=== PATIENT | female | born 1985 | race Caucasian/White ===

== ENCOUNTER 2016-11-29 19:28 | Emergency (ER) | payer MEDICAID ==
[~2016-11-29] VITALS: Ht 157.5 cm; Wt 79.0 kg
[2016-11-29 19:32] VITALS: Ht 157.5 cm; Wt 79.0 kg
[2016-11-29] MEDS ORDERED: SOD CHLORIDE 0.9% 1,000 ML IV ONE (20:30)
[2016-11-29] MEDS ORDERED: ACETAMINOPHEN 325 MG TAB PO ONE (20:30)
[2016-11-29 21:22] LABS: ADD SCAN DIFF NO
--- NOTE | 2016-11-29 21:25 | RADRPT ---
PROCEDURE: OB Ultrasound. CLINICAL INDICATION: Positive test. Vaginal bleeding. TECHNIQUE: Ultrasound of the pelvis was performed with transabdominal and transvaginal sonography in the axial and sagittal planes. COMPARISON: No prior study is available for comparison. FINDINGS: There is a single intrauterine gestational sac. pole is not visualized. Yolk sac is present. Mean sac diameter is 1.15 cm. Menstrual age by ultrasound dates is 5 weeks 5 days. This indicates an expected date of delivery of 07/27/2017. The right ovary appears normal measuring 2.9 x 2.0 x 2.3 cm. The left ovary appears normal measuring 2.1 x 1.7 x 2.1 cm. Color Doppler and pulsed Doppler sonography demonstrate normal flow to the ovaries. There is no other pelvic mass or free fluid. IMPRESSION: 1. Single early intrauterine gestational sac. It is too early to visualize pole. Follow-up ultrasound in 10 days is advised. RPTAT: QQ .Balta Chandra MD, Date Time Electronically viewed and signed by .Balta Chandra MD, on 11/29/2016 21:24 .R/
[2016-11-29 21:27] LABS: BASOPHILS % 0.4 % (0.0-2.0); EOSINOPHILS # 0.2 10^3/ul (0.0-0.5); EOSINOPHILS % 1.7 % (0.0-7.0); HEMATOCRIT 40.2 % (37.0-47.0); HEMOGLOBIN 13.4 g/dl (12.0-16.0); LYMPHOCYTES # 2.4 10^3/ul (0.8-2.9); LYMPHOCYTES % 21.4 % (15.0-51.0); MEAN CORPUSCULAR HEMOGLOBIN 32.2 pg (29.0-33.0); MEAN CORPUSCULAR HGB CONC 33.3 g/dl (32.0-37.0); MEAN CORPUSCULAR VOLUME 96.6 fl (82.0-101.0); MONOCYTE # 0.8 10^3/ul (0.3-0.9); MONOCYTES % 6.7 % (0.0-11.0); NEUTROPHIL # 7.7 10^3/ul (1.6-7.5); NEUTROPHILS % 69.3 % (39.0-77.0); PLATELET COUNT 251 10^3/UL (140-415); RED BLOOD COUNT 4.16 10^6/ul (4.20-5.40); RED CELL DISTRIBUTION WIDTH 12.4 % (11.5-14.5); WHITE BLOOD COUNT 11.1 10^3/ul (4.8-10.8)
[2016-11-29 21:36] LABS: ADD UMIC YES; URINE BILIRUBIN (Dip) NEGATIVE (NEGATIVE); URINE BLOOD (Dip) 3+ (NEGATIVE); URINE COLOR LT. YELLOW (YELLOW); URINE GLUCOSE (Dip) NEGATIVE (NEGATIVE); URINE KETONES (Dip) NEGATIVE (NEGATIVE); URINE LEUKOCYTE ESTERASE (Dip) NEGATIVE (NEGATIVE); URINE NITRITE (Dip) NEGATIVE (NEGATIVE); URINE TOTAL PROTEIN (Dip) NEGATIVE (NEGATIVE); URINE UROBILINOGEN (Dip) 0.2 E.U./dL (0.1-1.0)
[2016-11-29 21:42] LABS: ALBUMIN 4.1 g/dl (3.3-4.9)
[2016-11-29 21:43] LABS: POTASSIUM 3.8 mmol/L (3.5-5.1)
[2016-11-29 21:45] LABS: ALBUMIN/GLOBULIN RATIO 1.13; BILIRUBIN,INDIRECT 0.3 mg/dl (0-1.1); BILIRUBIN,TOTAL 0.3 mg/dl (0.2-1.3); CALCIUM 9.4 mg/dl (8.4-10.2); CREATININE 0.74 mg/dl (0.44-1.00); TOTAL PROTEIN 7.7 g/dl (6.1-8.1)
--- NOTE | 2016-11-29 21:58 | ERD ---
ER Documentation Chief Complaint Date/Time DATE: 11/29/16 TIME: 21:53 Chief Complaint 5 wks , vag bleeding 1 hour ago HPI 30-year-old other otherwise healthy female presents the emergency department complaining of mild lower abdominal cramping and spotting. Patient states she is approximately 5 weeks . Patient denies any recent trauma, fever, nausea, vomiting, diarrhea. This is her first . Patient has not yet been to see [facility]. ROS All systems reviewed and are negative except as per history of present illness. Allergies Allergies: Coded Allergies: Penicillins (Verified Allergy, Unknown, 11/29/16) Sulfa (Sulfonamide Antibiotics) (Verified Allergy, Unknown, 11/29/16) PMhx/Soc Medical and Surgical Hx: pt denies Medical Hx, pt denies Surgical Hx Hx Alcohol Use: No Hx Substance Use: No Hx Tobacco Use: No Smoking Status: Never smoker Physical Exam Vitals Vital Signs Date Time Temp Pulse Resp B/P Pulse Ox O2 Delivery O2 Flow Rate FiO2 11/29/16 19:32 99.7 92 20 127/72 100 Physical Exam Const: Well-developed, well-nourished, no acute distress Head: Atraumatic Eyes: Normal Conjunctiva ENT: Normal External Ears, Nose and Mouth. Neck: Full range of motion..~ No meningismus. Resp: Clear to auscultation bilaterally Cardio: Regular rate and rhythm, no murmurs Abd: Soft, non tender, non distended. Normal bowel sounds Skin: No petechiae or rashes Back: No midline or flank tenderness Ext: No cyanosis, or edema Neur: Awake and alert Psych: Normal Mood and Affect Result Diagram: 11/29/16211411/29/162114 Results 24 hrs Laboratory Tests Test 11/29/16 21:00 11/29/16 21:15 Urine Bacteria RARE Urine Bilirubin NEGATIVE Urine Clarity SLIGHTLY CLOUDY Urine Color LT. YELLOW Urine Glucose NEGATIVE% Urine Hemoglobin 3+ Urine Ketones NEGATIVE Urine Leukocyte Esterase NEGATIVE Urine Microscopic RBC 5-10/HPF Urine Microscopic WBC 0-2/HPF Urine Nitrite NEGATIVE Urine Specific [place] 1.020 Urine Squamous Epithelial Cells FEW Urine Total Protein NEGATIVE Urine Urobilinogen 0.2 E.U./dL Urine pH 6.0 Alanine Aminotransferase (ALT/SGPT) 81IU/L Albumin 4.1g/dl Albumin/Globulin Ratio 1.13 Alkaline Phosphatase 102IU/L Anion Gap 17 Aspartate Amino Transf (AST/SGOT) 41IU/L Basophils # 0.010^3/ul Basophils % 0.4% Beta HCG, Quantitative 79885.0mIU/ml Blood Urea Nitrogen 14mg/dl Calcium Level 9.4mg/dl Carbon Dioxide Level 25mmol/L Chloride Level 101mmol/L Creatinine 0.74mg/dl Direct Bilirubin 0.00mg/dl Eosinophils # 0.210^3/ul Eosinophils % 1.7% Globulin 3.60g/dl Glucose Level 93mg/dl Hematocrit 40.2% Hemoglobin 13.4g/dl Indirect Bilirubin 0.3mg/dl Lymphocytes # 2.410^3/ul Lymphocytes % 21.4% Mean Corpuscular Hemoglobin 32.2pg Mean Corpuscular Hemoglobin Concent 33.3g/dl Mean Corpuscular Volume 96.6fl Mean Platelet Volume 11.0fl Monocytes # 0.810^3/ul Monocytes % 6.7% Neutrophils # 7.710^3/ul Neutrophils % 69.3% Nucleated Red Blood Cells # 0.010^3/ul Nucleated Red Blood Cells % 0.0/100WBC Platelet Count 88049^3/UL Potassium Level 3.8mmol/L Red Blood Count 4.1610^6/ul Red Cell Distribution Width 12.4% Sodium Level 139mmol/L Total Bilirubin 0.3mg/dl Total Protein 7.7g/dl White Blood Count 11.110^3/ul Current Medications Medications (Trade) Dose Ordered Sig/Nicole Route PRN Reason Start Time Stop Time Status Last Admin Dose Admin Sodium Chloride (NS) 1,000 ml @ 1,000 mls/hr Q1H ONCE IV 11/29/16 20:30 11/29/16 21:29 DC 11/29/16 21:09 Acetaminophen (Tylenol Tab) 650 mg ONCE ONCE PO 11/29/16 20:30 11/29/16 20:31 DC 11/29/16 21:09 Procedures/MDM PROCEDURE: OB Ultrasound. CLINICAL INDICATION: Positive test. Vaginal bleeding. TECHNIQUE: Ultrasound of the pelvis was performed with transabdominal and transvaginal sonography in the axial and sagittal planes. COMPARISON: No prior study is available for comparison. FINDINGS: There is a single intrauterine gestational sac. pole is not visualized. Yolk sac is present. Mean sac diameter is 1.15 cm. Menstrual age by ultrasound dates is 5 weeks 5 days. This indicates an expected date of delivery of 07/27/2017. The right ovary appears normal measuring 2.9 x 2.0 x 2.3 cm. The left ovary appears normal measuring 2.1 x 1.7 x 2.1 cm. Color Doppler and pulsed Doppler sonography demonstrate normal flow to the ovaries. There is no other pelvic mass or free fluid. IMPRESSION: 1. Single early intrauterine gestational sac. It is too early to visualize pole. Follow-up ultrasound in 10 days is advised. RPTAT: QQ .Balta Chandra MD, MD Date Time Electronically viewed and signed by .Balta Chandra MD, MD on 11/29/2016 21:24 .R/ CC: DORA RUTH PA-C MDM Otherwise healthy 30-year-old female presents to the emergency department complaining of lower abdominal cramping and mild vaginal spotting. Patient is estimated to be around 5 weeks . Patient denies any urinary symptoms including dysuria, hematuria, or vaginal discharge. Patient is afebrile, normotensive, non-tachycardic and not hypoxic. OB ultrasound demonstrated a single early intrauterine gestational sac. Recommended follow-up ultrasound in 10 days Patient received bolus of fluids while in the emergency department. CBC showed no evidence of systemic infection or severe anemia. CMP showed no evidence of electrolyte abnormalities, severe acidosis, alkalosis , renal failure, or liver disease. UA showed no evidence of acute infection or hematuria. Blood type O-. RhoGAM ordered and administered to patient. At this time I have low suspicion for urinary tract infection, spontaneous , pelvic inflammatory disease, ovarian torsion, tubo-ovarian abscess, appendicitis, diverticulitis. Patient to follow-up with [facility] and repeat ultrasound within 10 days. Patient expressed understanding of and agreement with plan Based on patient's history of present illness and physical examination the decision was made to discharge. The patient was re-evaluated after ED treatment and stabilizing measures, and symptoms have improved. There is no evidence of life threatening injuries or illnesses at this time. On re-examination, patient resting in no distress, stable vital signs, reports feeling better and safe for discharge with outpatient follow up with PMD in 1-2 days. Patient given return precautions. Departure Diagnosis: Primary Impression: Vaginal bleeding Additional Impressions: Vaginal bleeding in patient at less than 20 weeks gestation Pelvic cramping DORA RUTH PA-C Nov 29, 2016 21:58
[2016-11-29 22:01] LABS: BACTERIA,URINE RARE; SQUAMOUS EPITHELIAL CELL,UR FEW
[2016-11-29] MEDS ORDERED: ONDA4TAB14 PO (23:39)
[2016-11-29] MEDS ORDERED: ACET-2047 PO (23:39)
[2016-11-30 00:33] VITALS: BP 122/70; PULSE 88; RESP 20; TEMP 98.8
== END 2016-11-30 00:35 | disposition home or self-care (01) ==
LOC: FTE 19:28
DX: O20.9 Hemorrhage in early pregnancy, unspecified (principal); R10.2 Pelvic and perineal pain; Z3A.01 Less than 8 weeks gestation of pregnancy
CPT/HCPCS: 76817; 80053; 81001; 81003; 84702; 85025; 86900; 86901; J2790; J7030; Z7502; Z7610

== ENCOUNTER 2017-03-22 22:42 | Outpatient (CLI) | payer MEDICAID ==
[~2017-03-22] VITALS: Ht 152.4 cm; Wt 82.3 kg
[~2017-03-22 22:42] MED LIST: ACET-2047 PO; ONDA4TAB14 PO
[2017-03-22 23:25] VITALS: Ht 152.4 cm; Wt 82.3 kg
[2017-03-22 23:26] VITALS: BP 134/68; PULSE 115; RESP 18
--- NOTE | 2017-03-23 00:50 | RADRPT ---
PROCEDURE: US OB. CLINICAL INDICATION: , vaginal bleeding. TECHNIQUE: Multiple sonographic images of the pelvis were obtained. Transabdominal imaging only w as performed. The images were reviewed on a PACS workstation. COMPARISON: No prior studies are available for comparison. FINDINGS: The cervix is closed with a length of 3.5 cm. There is a single viable intrauterine gestation. Cardiac activity is present with 143 beats per minute. There is a cephalic presentation. Measurements were made in order to determine age. The results are as follows: BPD = 5.25 cm HC = 18.94 cm AC = 16.21 cm FL = 3.59 cm Estimated gestational age of approximately 21 weeks 4 days. The estimated date of delivery is 07/30/2017. The EFW = 417 g. EFW percentile: 16% The placenta is posterior, grade 0. There is no evidence for an abruption or placenta previa. There is an adequate amount of amniotic fluid. IMPRESSION: 1. Single viable intrauterine gestation of approximately 21 weeks 4 days, based on ultrasound measu rements. The estimated date of delivery is 07/30/2017. 2. EFW percentile: 16%. RPTAT: HTAR .Eliezer Darnell MD, MD Date Time Electronically viewed and signed by .Eliezer Darnell MD, on 03/23/2017 00:50 .R/
[2017-03-23 01:51] LABS: ADD UMIC YES; UR ASCORBIC ACID NEGATIVE (NEGATIVE); UR BILIRUBIN (Dip) NEGATIVE (NEGATIVE); UR BLOOD (Dip) 2+ mg/dL (NEGATIVE); UR CLARITY CLEAR (CLEAR); UR COLOR STRAW (YELLOW); UR GLUCOSE (Dip) NEGATIVE (NEGATIVE); UR KETONES (Dip) NEGATIVE (NEGATIVE); UR LEUKOCYTE ESTERASE (Dip) NEGATIVE Leu/ul (NEGATIVE); UR NITRITE (Dip) NEGATIVE (NEGATIVE); UR RBC 1 /HPF (0-5); UR SPECIFIC GRAVITY (Dip) 1.005 (1.003-1.030); UR TOTAL PROTEIN (Dip) NEGATIVE (NEGATIVE); UR UROBILINOGEN (Dip) NEGATIVE (NEGATIVE)
--- NOTE | 2017-03-23 02:20 | PN ---
Triage Information Date/Time Weeks of Gestation 21+wkks GA : 2 Para: 1 Diabetes: none Hypertention: none Objective Vital Signs Date Time Temp Pulse Resp B/P Pulse Ox O2 Delivery O2 Flow Rate FiO2 03/22/17 23:26 98.1 115 18 134/68 99 Room Air Heart Rate: 140's Contractions: None Exam O1 No CTX CXL WNL EFW<500grams Results/Medications Results 24 hrs Laboratory Tests Test 03/22/17 23:50 Urine Color STRAW Urine Clarity CLEAR Urine pH 7.0 Urine Specific [place] 1.005 Urine Ketones NEGATIVE Urine Nitrite NEGATIVE Urine Bilirubin NEGATIVE Urine Urobilinogen NEGATIVE Urine Leukocyte Esterase NEGATIVE Urine Microscopic RBC 1 Urine Microscopic WBC 0 Urine Hemoglobin 2+ H Urine Glucose NEGATIVE Urine Total Protein NEGATIVE Assessment/Plan 1.precautions discussed with patient patient's questions answerd follow up with TABBY Henry MD, M.D. Mar 23, 2017 02:19
--- NOTE | 2017-03-23 06:10 | TRIAGE ---
OB Triage Datetime Report Generated by CPN: 03/23/2017 06:10 Datetime: 03/23/2017 03:40 Stage of : OB Triage Datetime: 03/23/2017 03:30 Stage of : OB Triage Datetime: 03/23/2017 03:15 Stage of : OB Triage Datetime: 03/23/2017 03:00 Stage of : OB Triage Datetime: 03/23/2017 02:50 Stage of : OB Triage Datetime: 03/23/2017 02:15 Stage of : Recovery Datetime: 03/23/2017 02:02 Stage of : OB Triage Datetime: 03/23/2017 00:27 Labor Evaluation Frequency: NONE Pattern: Normal: <= 5 Contractions in 10 Minutes Resting Tone [place]: Relaxed Heart Rate FHR Baseline Rate: 145 Monitor Mode: External US Vaginal Exam Membrane Status: Intact Datetime: 03/22/2017 23:49 Labor Evaluation Frequency: NONE Pattern: Normal: <= 5 Contractions in 10 Minutes Heart Rate FHR Baseline Rate: 145 Monitor Mode: External US Datetime: 03/22/2017 23:39 Vaginal Exam Membrane Status: Intact Datetime: 03/22/2017 23:02 Assessment Type: Triage Maternal Assessment Level of Consciousness: Fully Conscious DTR's/Clonus: DTRs 2+; No Clonus Headache: Denies Blurred Vision: No Respiratory Effort: Unlabored; Regular Rhythm; Equal Expansion Breath Sounds, Left: Clear and Equal Breath Sounds, Right: Clear and Equal Nausea/Vomiting: Denies RUQ Epigastric Pain: Denies Facial Edema: None Fall Risk Assessment History of Falling: (0) No Secondary Diagnosis: (0) No Ambulatory Aid: (0) Bedrest/Nurse Assist IV Therapy: (0) No Gait: (0) Normal/Bedrest/Immobile Mental Status: (0) Oriented to Own Ability Fall Score: 0 Fall Risk Score Definition: No Risk: No action required Comment: PLACED ON EFM CALL LIGHT WITHIN REACH. FOB AT BEDSIDE Datetime: 03/22/2017 23:00 Time of Arrival: 03/22/2017 22:40 EGA: 22.0 Arrived By: Ambulatory Arrived From: Home Chief Complaint: pt c_o vaginal bleeding after having sex on . spotting has been off and o n since Fri Movement: Present Contractions: Denies/Absent Rupture of Membranes: Denies Vaginal Bleeding: Small Vaginal Discharge: Denies Recent Sexual Intercouse: Yes Abdominal Trauma: Not Applicable Patient Complaints: None Time Provider Notified: 03/22/2017 23:15 Provider Notified: FABIAN Initial Plan: EFM, EFW, CL, PLACENTA, UA Datetime: 03/22/2017 22:58 Labor Evaluation Frequency: NONE Pattern: Normal: <= 5 Contractions in 10 Minutes Heart Rate FHR Baseline Rate: 145 Monitor Mode: External US Datetime: 03/22/2017 22:40 Time of Arrival: 03/22/2017 22:40
== END 2017-03-23 03:40 | disposition left against medical advice (07) ==
LOC: L-D 22:42 → OBT 22:42 → L-D 22:43 → OBT 03-23 03:40
PROVIDERS: ATTEND Obstetrics & Gynecology
DX: O46.92 Antepartum hemorrhage, unspecified, second trimester (principal); Z3A.21 21 weeks gestation of pregnancy
CPT/HCPCS: 76815; 76817; 81001; 86850; 86885; 86900; 86901